=== PATIENT | male | born 1965 | race Caucasian/White ===

== ENCOUNTER 2016-11-22 09:54 | Inpatient (IN) ==
[2016-11-22] MEDS ORDERED: SODIUM CHLORIDE 0.9% 1,000 ML IV STA ×2 (10:16→11:14)
[2016-11-22] MEDS ORDERED: LEVOFLOXACIN INJ 750 MG in PREMIX 1 EACH IV STA (10:16)
[2016-11-22] MEDS ORDERED: ONDANSETRON ODT 4 MG TABLET PO STA (10:16)
[2016-11-22] MEDS ORDERED: cefTRIAXone 2,000 MG in SODIUM CHLORIDE 0.9% 100 ML IV ONE (10:24)
[2016-11-22 10:31] LABS: Basophils % 0.5 % (0.0-0.8); Eosinophils % 0.5 % (0.00-10.9); Hematocrit 38.3 VOL% (42.0-52.0); Hemoglobin 13.5 GM/DL (14.0-18.0); Immature Granulocytes % 0.5 %; Immature Granulocytes Absolute 0.02 #; Lymphocytes # 1.3 10*3/uL (1.4-4.0); Lymphocytes % 31.8 % (21.2-54.2); Mean Corpuscular HGB Conc 35.2 GM/DL (32-36); Mean Corpuscular Hemoglobin 29 PG (27-34); Mean Corpuscular Volume 83.3 FL (87-102); Mean Platelet Volume 9.1 FL (9.6-12.0); Monocytes # 0.4 10*3/uL (0.11-0.8); Monocytes % 10.4 % (1.7-12.7); Neutrophils # 2.3 10*3/uL (1.4-7.4); Neutrophils % 56.3 % (38.7-73.9); Platelet Count 210 T/CUMM (130-400); Red Cell Distribution Width 13.4 % (9.3-17.3)
[2016-11-22] MEDS ORDERED: LEVOFLOXACIN INJ 150 ML IV ONE (10:37)
[2016-11-22] MEDS ORDERED: cefTRIAXone 1,000 MG VIAL ONE ×2 (10:38→10:48)
[2016-11-22] MEDS ORDERED: ONDANSETRON ODT 4 MG TABLET PO ONE (10:38)
--- NOTE | 2016-11-22 10:46 | CT Report ---
History: Dysuria. Lower abdominal pain. Stones. Neurogenic bladder Date: 11/22/2016 Study: CT abdomen and pelvis without contrast Comparison exam: No previous similar exam Technique: Spiral CT sections were obtained from the lung bases to the pubic symphysis without contrast. The CT exam was performed using one or more of the following dose reduction techniques: Automated exposure control, adjustment of the mA and/or kV according to patient size, or use of iterative reconstruction technique. CT abdomen: There is no agnieszka pneumonia in the partially visualized lung bases. There is some pleural-based platelike atelectasis or scarring in either lower lung zone, left more than right. There is no gross pleural or pericardial effusion. There is no evidence of pneumoperitoneum. The spleen, pancreas, adrenal glands, bile ducts, gallbladder, and kidneys are normal in noncontrast appearance. There is no radiopaque renal or ureteral stone. There is no hydronephrosis. There is a 9.5 mm lobular low-density superiorly in the left lobe of the liver which may represent hepatic cyst, but is difficult to characterize because of size and lack of contrast. The liver is otherwise unremarkable. There is no aneurysm of the mildly calcified abdominal aorta. There is an infrarenal level IVC filter in place, likely [employer]. The appendix appears normal without evidence of agnieszka appendicitis. CT pelvis: There is no pelvic mass or pelvic lymphadenopathy. There is mild diffuse prominence of the wall of the urinary bladder such as that which can be seen with neurogenic bladder or chronic cystitis. Phleboliths are noted in the pelvis. Impression: No radiopaque renal or ureteral stone. No definite acute abdominal process. Infrarenal level IVC filter. Diffuse mild thickening of the wall of the urinary bladder such as that which can be seen with chronic cystitis or neurogenic bladder PROCEDURE INTERPRETED AT [facility] DEPARTMENT OF RADIOLOGY Final Report Signed by: Dr. Berna Wahl
[2016-11-22 10:50] LABS: Calcium 8.6 MG/DL (8.5-10.1); Osmolality,Calculated 268.1 MOS/KG (273-304); Potassium 3.7 MMOL/L (3.5-5.1)
[2016-11-22 11:01] LABS: Apearance,Urine CLOUDY (Clear); Bacteria,Urine Many /HPF (Few); Bilirubin,Urine Negative (Negative); Blood, Urine Small mg/dL (Negative); Glucose,Urine (UA) Negative (Negative); Ketones,Urine Negative (Negative); Nitrite,Urine Positive (Negative); Protein,Urine Negative; RBC,Urine 36 /HPF (0-4); Sperm,Urine Occasional /HPF (Negative); Urine Color Yellow (Yellow); Urine Specific Gravity 1.003 (1.001-1.035); Urine Urobilinogen < 2.0 EU/DL (0.2-1.0); WBC,Urine 340 /HPF (0-6)
[2016-11-22 11:10] LABS: Band Neutrophils 1 % (0-10); Hypochromasia 1+; Lymphocytes 30 % (20-55); Segmented Neutrophils 56 % (50-85); Total Cells Counted 100
[2016-11-22 11:12] LABS: Platelet Estimate Normal
--- NOTE | 2016-11-22 12:44 | Emergency Department Note ---
Yann To Manpreet, am scribing for, and in the presence of, Saúl Jean Baptiste MD 10:16. Markel To Doug C, MD, personally performed the services described in this documentation, ascribed by Juan Manuel Lerner in my presence, and it is both accurate and complete . Arrival - Arrival Chief Complaint: Urogenital - Male Stated Complaint: STINGING IN RIGHT FOOT ED Nursing Triage Note: C/o penis burning and stinging-onset three days ago. Patient has kidd with leg bag, reports dark urine in bag this morning. Mode of Arrival: Ambulatory Limitations: No Limitations Source: Patient - History of Present Illness HPI Narrative: Patient 51-year-old white male comes in today complaining of burning with urination and weakness. Patient states he also has had a subjective fever but denies any flank pain, nausea or vomiting. Patient states he felt very weak when he walked here to the emergency room from the parking lot and thought he might pass out. There is noted to have a blood pressure 76/41 on arrival here at the ED. Patient has a history of neurogenic bladder following a spinal cord injury in 2005. He has to and out caths and he also wears a condom catheter. Patient states she is urine was very dark this morning. He said similar problems in the past with urinary tract infections. Onset (ago): day(s) Consistency: constant Severity: moderate Severity scale (1-10): 3 Quality: burning Allergies/Adverse Reactions: Allergies Allergy/AdvReac Type Severity Reaction Status Date / Time Unable to Obtain Allergy Unverified 07/23/16 20:02 Home Medications: Home Medications Medication Instructions Recorded Confirmed Type Baclofen Tab [Lioresal] 20 mg PO QID 07/23/16 11/22/16 History Gabapentin 300 mg PO QPM 07/23/16 11/22/16 History Tizanidine HCl [Zanaflex] 4 mg PO BID 07/23/16 11/22/16 History Tolterodine LA [Detrol LA] 4 mg PO QAM 07/23/16 11/22/16 History Ibuprofen Tab [Motrin Tab] 800 mg PO DAILY PRN 11/22/16 11/22/16 History Review of System - Review of System 12 point system: reviewed and no additional remarkable complaints except as stated - Review of System Constitutional: Present: chills, fever ("[place] like he had a fever"), weakness. Absent: diaphoresis Head/Ears/Nose/Throat: Absent: sore throat ( ) Respiratory: Absent: cough, respiratory distress Cardiovascular: Absent: chest pain, dyspnea on exertion Gastrointestinal: Absent: abdominal pain, nausea, vomiting Genitourinary male: Present: dysuria, other (Dark orange urine). Absent: hematuria Musculoskeletal: Absent: back pain, neck pain Neurological: Absent: headache Medical,Surgical,& Family Hx - Medical History Musculoskeletal: History of: Back/Neck Problems, Musculoskeletal Problems - Social History Smoking Status: Never smoker Frequency of Alcohol Use: None Type of Drug Use: None Exam Vital Signs: Vital Signs Temperature 97.1 F L 11/22/16 10:01 Pulse Rate 64 11/22/16 12:15 Respiratory Rate 15 11/22/16 12:15 Blood Pressure 100/56 11/22/16 12:15 O2 Sat by Pulse Oximetry 100 11/22/16 12:15 - General General appearance: alert, in no apparent distress - Head Head exam: Present: atraumatic, normocephalic, normal inspection - Eye Eye exam: Present: normal appearance, PERRL, EOMI - ENT ENT exam: Present: normal exam, normal oropharynx, mucous membranes moist, TM's normal bilaterally - Neck Neck exam: Present: normal inspection, full ROM, trachea midline. Absent: tenderness, thyromegaly - Chest Chest inspection: Present: normal inspection, symmetric chest wall rise. Absent : tenderness - Respiratory Respiratory exam: Present: normal lung sounds bilaterally. Absent: accessory muscle use, respiratory distress - Cardiovascular Cardiovascular exam: Present: regular rate, normal rhythm, normal heart sounds. Absent: murmur, rubs, gallop - Abdominal Exam Abdominal exam: Present: soft, normal bowel sounds. Absent: distention, tenderness, guarding, diminished bowel sounds - Extremities Exam Extremities exam: Present: normal inspection, full ROM. Absent: tenderness - Back Exam Back exam: Present: normal inspection, full ROM. Absent: tenderness - Neurological Exam Neurological exam: Present: alert, oriented X3, CN II-XII intact, reflexes normal - Psychiatric Psychiatric exam: Present: normal affect, normal mood - Skin Skin exam: Present: warm, dry, intact, normal color. Absent: pallor Course Course Narrative: Patient's clinical history, laboratory findings and x-ray results were discussed with Arley who is covering the hospitalist service. Patient will be seen in the emergency room and evaluated for admission. Results - Labs CBC & BMP: 11/22/16 10:23 11/22/16 10:23 Lab Results: I have reviewed the patients labs Labs: Laboratory Tests 11/22/16 10:23 WBC 4.0 RBC 4.60 Hgb 13.5 L Hct 38.3 L MCV 83.3 L MPV 9.1 L Lymph # (Auto) 1.3 L Laboratory Tests 11/22/16 10:23 Sodium 135 L Potassium 3.7 Chloride 102 Carbon Dioxide 25 Anion Gap 11.7 BUN 8 Glucose 120 H Calculated Osmolality 268.1 L Laboratory Tests 11/22/16 10:23 Urine pH 6.0 Ur Specific [place] 1.003 Urine Nitrate Positive H Urine Urobilinogen < 2.0 H Urine Leukocytes Large H Urine RBC 36 Urine WBC 340 Laboratory Tests 11/22/16 10:23 Total Counted 100 Segmented Neutrophils 56 Band Neutrophils 1 Lymphocytes 30 Monocytes 13 Hypochromasia 1+ - Diagnostic Findings Procedure: CT Abdomen and Pelvis: report reviewed by me (CT Abd/Pel w/o Con: No radiopaque renal or ureteral stone. No definite acute abdominal process. Infrarenal level IVC filter. Diffuse mild thickening of the wall of the urinary bladder such as that which can be seen with chronic cystitis or neurogenic bladder.) Disposition Clinical Impression: UTI (urinary tract infection) Case discussed with: patient Disposition: Still a Patient Condition: Stable Time of Disposition: 12:43 Sepsis - Sepsis Classification of Sepsis: Sepsis Possible / Suspected infection from: UTI Sepsis documentation within 6 hours of presentation: fluid change - Physical Exam Capillary Refill: Greater Than 3 Seconds Peripheral pulses: Radial (L): 1+, Radial (R): 1+ Cardiovascular exam: regular rate and rhythm Skin exam: normal color
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
[2016-11-22] MEDS ORDERED: ACETAMINOPHEN 325 MG TABLET PO PRN (14:58)
[2016-11-22] MEDS: ENOXAPARIN 40 MG/0.4 ML SYRINGE SUBCUT SCH (16:45)
[2016-11-22] MEDS: SODIUM CHLORIDE 0.9% 1,000 ML IV SCH (16:45)
[2016-11-22] MEDS ORDERED: GABAPENTIN 300 MG CAPSULE PO SCH (19:00)
[2016-11-22] MEDS: tiZANidine 4 MG TABLET PO SCH (21:14)
[2016-11-23] MEDS: SODIUM CHLORIDE 0.9% 1,000 ML IV SCH ×2 (05:36→17:21)
[2016-11-23 06:15] LABS: Basophils % 0.7 % (0.0-0.8); Eosinophils % 0.7 % (0.00-10.9); Hematocrit 33.3 VOL% (42.0-52.0); Hemoglobin 11.5 GM/DL (14.0-18.0); Immature Granulocytes % 0.3 %; Immature Granulocytes Absolute 0.01 #; Lymphocytes # 1.4 10*3/uL (1.4-4.0); Lymphocytes % 45.7 % (21.2-54.2); Mean Corpuscular HGB Conc 34.5 GM/DL (32-36); Mean Corpuscular Hemoglobin 30 PG (27-34); Mean Corpuscular Volume 85.6 FL (87-102); Mean Platelet Volume 9.7 FL (9.6-12.0); Monocytes # 0.4 10*3/uL (0.11-0.8); Monocytes % 11.6 % (1.7-12.7); Neutrophils # 1.2 10*3/uL (1.4-7.4); Platelet Count 182 T/CUMM (130-400); Red Blood Count 3.89 MC/CUMM (3.8-5.5); Red Cell Distribution Width 13.6 % (9.3-17.3)
[2016-11-23 06:56] LABS: Calcium 7.8 MG/DL (8.5-10.1); Magnesium 2.1 MG/DL (1.8-2.4); Osmolality,Calculated 277.3 MOS/KG (273-304); Potassium 3.7 MMOL/L (3.5-5.1); Risk Ratio 6.29; Thyroid Stimulating Hormone 2.36 uIU/ml (0.358-3.74)
[2016-11-23 07:54] LABS: Hypochromasia 2+; Lymphocytes 25 % (20-55); Microcytosis 2+; Platelet Estimate Adequate; Segmented Neutrophils 60 % (50-85); Total Cells Counted 99
[2016-11-23] MEDS: TOLTERODINE LA 4 MG CAPSULE PO SCH (08:39)
[2016-11-23] MEDS: PANTOPRAZOLE 40 MG TABLET PO SCH (08:39)
[2016-11-23] MEDS: tiZANidine 4 MG TABLET PO SCH ×2 (08:39→20:48)
[2016-11-23] MEDS: cefTRIAXone 1,000 MG in SODIUM CHLORIDE 0.9% 100 ML IV SCH (08:39)
--- NOTE | 2016-11-23 10:25 | Hospitalist Progress Note ---
Assessment and Plan (1) UTI (urinary tract infection) Status: Acute Assessment and plan: Continue rocephin Urine culture with gram negative rods, f/u final Current Visit: Yes (2) Hypotension Status: Acute Assessment and plan: Improving with IV fluids Current Visit: Yes Hospitalist: Subjective Interval history: No acute events overnight. Patient without complaints. The burning with urination has resolved. Exam - Constitutional Vitals: Period Temp Pulse Resp BP Sys/Ross Pulse Ox Last 24 Hr 97.6 F-99.2 F 62-80 14-20 87-115/55-70 94-100 General appearance: normal weight - Head Head exam: Present: normocephalic, atraumatic - Eye Eye exam: Present: EOMI Pupils: Present: CRISTHIAN - ENT ENT exam: Present: normal exam - Neck Neck exam: Present: normal inspection - Respiratory Respiratory exam: Present: clear to auscultation bilaterally. Absent: rhonchi, wheezes - Cardiovascular Cardiovascular exam: Present: regular rate and rhythm - GI/Abdominal GI/Abdominal exam: Present: normal bowel sounds, soft. Absent: tenderness, rebound - Extremities Exam Extremities exam: Present: normal inspection - Back Exam Back exam: Present: normal inspection - Neurological Exam Neurological exam: Present: alert, oriented X3 - Psychiatric Psychiatric exam: Present: normal affect, normal mood - Skin Skin exam: Present: warm, intact Results - Labs CBC & BMP: 11/23/16 05:38 11/23/16 05:39
[2016-11-23] MEDS: BACLOFEN 20 MG TABLET PO SCH ×3 (15:14→20:48)
[2016-11-23] MEDS: ENOXAPARIN 40 MG/0.4 ML SYRINGE SUBCUT SCH (15:14)
[2016-11-23] MEDS ORDERED: GABAPENTIN 300 MG CAPSULE PO SCH (16:43)
[2016-11-23] MEDS ORDERED: DOCUSATE SODIUM 100 MG CAPSULE PO PRN (17:31)
[2016-11-23] MEDS: GABAPENTIN 300 MG CAPSULE PO SCH (20:48)
[2016-11-24 07:20] LABS: Basophils % 0.9 % (0.0-0.8); Eosinophils % 0.9 % (0.00-10.9); Hematocrit 33.4 VOL% (42.0-52.0); Hemoglobin 11.2 GM/DL (14.0-18.0); Immature Granulocytes % 0.6 %; Immature Granulocytes Absolute 0.02 #; Lymphocytes % 58.2 % (21.2-54.2); Mean Corpuscular HGB Conc 33.5 GM/DL (32-36); Mean Corpuscular Hemoglobin 29 PG (27-34); Mean Corpuscular Volume 85.9 FL (87-102); Mean Platelet Volume 10.1 FL (9.6-12.0); Monocytes # 0.4 10*3/uL (0.11-0.8); Monocytes % 10.4 % (1.7-12.7); Platelet Count 193 T/CUMM (130-400); Red Blood Count 3.89 MC/CUMM (3.8-5.5); Red Cell Distribution Width 13.8 % (9.3-17.3); White Blood Count 3.4 T/CUMM (4-12)
[2016-11-24 07:33] LABS: Calcium 7.9 MG/DL (8.5-10.1); Magnesium 2.2 MG/DL (1.8-2.4); Osmolality,Calculated 281.8 MOS/KG (273-304); Potassium 3.6 MMOL/L (3.5-5.1)
[2016-11-24] MEDS: SODIUM CHLORIDE 0.9% 1,000 ML IV SCH ×2 (08:32→09:11)
[2016-11-24] MEDS: BACLOFEN 20 MG TABLET PO SCH ×5 (09:07→20:38)
[2016-11-24] MEDS: tiZANidine 4 MG TABLET PO SCH ×2 (09:07→20:39)
[2016-11-24] MEDS: cefTRIAXone 1,000 MG in SODIUM CHLORIDE 0.9% 100 ML IV SCH (09:08)
[2016-11-24] MEDS: TOLTERODINE LA 4 MG CAPSULE PO SCH (09:08)
[2016-11-24] MEDS: PANTOPRAZOLE 40 MG TABLET PO SCH (09:08)
--- NOTE | 2016-11-24 09:18 | XRay Report ---
XR KUB Indication: Abdominal pain, constipation Comparison: CT 22 November 2016 Findings: No free fluid or free air seen. Increased stool volume is seen in the colon. The bowel gas pattern otherwise appears within normal limits. No abnormal calcifications are present. No other abnormality is identified. Impression: Increased stool volume in the colon, may indicate constipation. PROCEDURE INTERPRETED AT [facility] DEPARTMENT OF RADIOLOGY Final Report Signed by: Dr. Ed Silver
[2016-11-24 09:20] LABS: Band Neutrophils 1 % (0-10); Eosinophils 1 % (0-10); Hypochromasia 2+; Lymphocytes 40 % (20-55); Microcytosis 2+; Platelet Estimate Adequate; Segmented Neutrophils 38 % (50-85); Total Cells Counted 100
--- NOTE | 2016-11-24 11:58 | Hospitalist Progress Note ---
Assessment and Plan (1) UTI (urinary tract infection) Status: Acute Assessment and plan: Continue rocephin Urine culture with Klebsiella, continue rocephin Current Visit: Yes (2) Hypotension Status: Acute Assessment and plan: Improving with IV fluids Will discontinue fluids, if does well will discharge tomorrow Current Visit: Yes Hospitalist: Subjective Interval history: No acute events overnight. Patient reports constipation. Exam - Constitutional Vitals: Period Temp Pulse Resp BP Sys/Ross Pulse Ox Last 24 Hr 97.6 F-99.0 F 56-81 15-19 90-140/58-76 90-99 General appearance: normal weight - Head Head exam: Present: normocephalic, atraumatic - Eye Eye exam: Present: EOMI Pupils: Present: CRISTHIAN - ENT ENT exam: Present: normal exam - Neck Neck exam: Present: normal inspection - Respiratory Respiratory exam: Present: clear to auscultation bilaterally - Cardiovascular Cardiovascular exam: Present: regular rate and rhythm - GI/Abdominal GI/Abdominal exam: Present: normal bowel sounds, soft. Absent: tenderness, rebound - Extremities Exam Extremities exam: Present: normal inspection - Back Exam Back exam: Present: normal inspection - Neurological Exam Neurological exam: Present: alert, oriented X3 - Psychiatric Psychiatric exam: Present: normal affect, normal mood - Skin Skin exam: Present: warm, intact Results - Labs CBC & BMP: 11/24/16 05:21 11/24/16 05:21
[2016-11-24] MEDS: ENOXAPARIN 40 MG/0.4 ML SYRINGE SUBCUT SCH (15:36)
[2016-11-24] MEDS: GABAPENTIN 300 MG CAPSULE PO SCH (20:39)
[2016-11-25 09:58] VITALS: BP 114/71
[2016-11-25] MEDS: BACLOFEN 20 MG TABLET PO SCH (10:01)
[2016-11-25] MEDS: TOLTERODINE LA 4 MG CAPSULE PO SCH (10:01)
[2016-11-25] MEDS: PANTOPRAZOLE 40 MG TABLET PO SCH (10:01)
[2016-11-25] MEDS: cefTRIAXone 1,000 MG in SODIUM CHLORIDE 0.9% 100 ML IV SCH (10:02)
[2016-11-25] MEDS: tiZANidine 4 MG TABLET PO SCH (10:02)
--- NOTE | 2016-11-25 10:08 | Discharge Summary ---
<Roxanne Sanfordda - Last Filed: 11/25/16 09:17> Hospital Course - Hospital Course Hospital Course: This is a 51-year-old male that presented to the ED at [facility] on November 22, 2016 for the evaluation of urogenital discomfort. Patient has a medical history significant for spinal cord injury with subsequent neurogenic bladder. The patient reported the onset of symptoms 2 days prior to presentation. He reported that he started to experience some burning with urination and weakness. The patient reported that he performs intermittent in and out catheterizations and also wears a condom catheter as a result of his spinal cord injury which left him with a neurogenic bladder. He reported that he had fever however denied flank pain,nausea, vomiting. His symptoms became unbearable; prompting him to present to the ED for further evaluation. The patient was assessed at the time of ED presentation. He was noted to be grossly hypotensive with a blood pressure noted at 76/41. The patient was given multiple fluid boluses and his pressure responded appropriately and was noted shortly thereafter at 100/56. CT scan abdomen and pelvis reported no radiopaque renal or ureteral stone, no definite acute abdominal process, infrarenal level IVC filter, and diffuse mild thickening of the wall of the urinary bladder which would correlate with chronic cystitis and neurogenic bladder. Urinalysis reported positive nitrates, urobilinogen greater than 2.0, large amount of leukocytes, urine WBCs were noted at 340, occasional WBC clumps , and many urine bacteria. The patient was subsequently admitted to hospitalist services for continuation of care. The patient was admitted. The patient was gently rehydrated and empiric antibiotics were initiated. On October 23, 2016, urine cultures reported Klebsiella pneumoniae; and empiric antibiotic coverage was continued. The patient's condition gradually improved. On November 24, 2016, kidneys ureter and bladder was performed which reported increased to volume in the colon which could indicate constipation. The patient was medicated and eventually had a bowel movement. The patient condition has remained stable. He has not experienced any significant overnight events. He has reached maximal benefit of inpatient stay and will be discharged home. Discharge Plan - Discharge Data Disposition: Disch To Home/Self Care - Discharge Medications New Ciprofloxacin HCl [Ciprofloxacin Tab] 500 mg PO BID #10 tablet Continue Baclofen Tab [Lioresal] 20 mg PO QID Tolterodine LA [Detrol LA] 4 mg PO QAM Gabapentin 300 mg PO QPM Tizanidine HCl [Zanaflex] 4 mg PO BID Ibuprofen Tab [Motrin Tab] 800 mg PO DAILY PRN PRN Reason: Pain Docusate Sodium [Colace] 100 mg PO BID PRN PRN Reason: Constipation - Follow Up or Referral - Forms/Instructions Exam - Constitutional Vitals: Period Temp Pulse Resp BP Sys/Ross Pulse Ox Last 24 Hr 97.4 F-97.9 F 61-84 16-20 94-118/48-64 91-98 Discharge Results Procedures and tests throughout hospitalization: Pending Orders 11/22/16 10:46 Blood Culture Stat Labs on day of discharge: Preliminary micro results at discharge 11/22/16 10:46 Blood Culture - Preliminary Blood No growth at 1 day 11/22/16 10:46 Blood Culture - Preliminary Blood No growth at 1 day DS: Provider Date of admission: 11/22/16 12:40 Primary care physician: . Sonia PCP Attending physician on admission: Brian Mata MD Consults: 11/22/16 14:58 Consult to Case Mgmt/Social Srvs [CONS] Routine Reason for Case Mgmt/Social Srvs: Discharge Planning Discharging clinician: Flaquito Sanford CNP <Brian Mata - Last Filed: 11/25/16 09:41> Hospital Course - Time spent with patient Time with patient DS: Less than 30 minutes (25) Diagnosis - Discharge Diagnosis (1) UTI (urinary tract infection) Status: Resolved (2) Hypotension Status: Resolved Discharge Plan - Discharge Data Condition at Discharge: Stable Discharge Diet: advance to your usual diet Activity: increase activity as tolerated Hygiene: no restrictions Weight Bearing at Discharge: weight bear as tolerated Contact your physician if you experience:: fever over 101 Exam - Constitutional General appearance: normal weight - Head Head exam: Present: normocephalic, atraumatic - Eye Eye exam: Present: EOMI Pupils: Present: CRISTHIAN - ENT ENT exam: Present: normal exam - Neck Neck exam: Present: normal inspection - Respiratory Respiratory exam: Present: clear to auscultation bilaterally. Absent: rhonchi, wheezes - Cardiovascular Cardiovascular exam: Present: regular rate and rhythm - GI/Abdominal GI/Abdominal exam: Present: normal bowel sounds, soft. Absent: tenderness, rebound - Extremities Exam Extremities exam: Present: normal inspection - Back Exam Back exam: Present: normal inspection - Neurological Exam Neurological exam: Present: alert, oriented X3 - Psychiatric Psychiatric exam: Present: normal affect, normal mood - Skin Skin exam: Present: warm, intact
--- NOTE | 2016-11-25 10:39 | Physician Query Form ---
CLICK EDIT DOCUMENT TO SELECT QUERY ANSWER --> OK --> SIGN Meka Beckman RN Clinical Associate Professor Of Medicine W) [phone] (f) [phone] [email or web address] PROVIDERS: Make your selection(s) from the choices in EACH section by typing an "x" and enter comments in the comment section. Please use your independent medical judgment in providing your response. This request does not imply that any particular answer is desired or expected. CLINICAL INDICATORS: (Providers should not edit this section) Based on documentation of "acute UTI" and "Patient has a history of neurogenic bladder. He has to and out caths and he also wears a condom catheter". Pt. treated with IV Levaquin. Based on the above, could you clarify the appropriate diagnosis, if significant , that supports the above abnormalities and additional evaluation, monitoring, and/or treatment rendered: ( ) UTI due to in and out catheterizations / condom catheter ( ) UTI not due to in and out catheterizations / condom catheter ( ) Other, please specify: (X) Clinically unable to determine COMMENTS: PLEASE ALSO DOCUMENT RESPONSE IN PROGRESS NOTES AND/OR DISCHARGE SUMMARY Use of terms such as suspected, likely, or probable (associated with a specific diagnosis that is being evaluated, monitored, or treated as if it exists) are acceptable and can be restated in the discharge summary if not ruled out. MTDD
== END 2016-11-25 12:19 | disposition home or self-care (01) | DRG 690 ==
LOC: N.ED 09:54 → N.EDINP 12:40 → N.5E 14:11
PROVIDERS: ADMIT Internal Medicine; ATTEND Internal Medicine

== ENCOUNTER 2017-12-24 18:13 | Observation (INO) ==
[2017-12-24] MEDS ORDERED: BISACODYL 5 MG TABLET PO PRN (18:18)
[2017-12-24] MEDS ORDERED: ACETAMINOPHEN 325 MG TABLET PO PRN (18:18)
[2017-12-24] MEDS ORDERED: ONDANSETRON 4 MG/2 ML VIAL IV PRN (18:18)
[2017-12-24] MEDS ORDERED: PROMETHAZINE 25 MG/1 ML VIAL IM PRN (18:18)
[2017-12-24 19:28] LABS: Eosinophils # 0.1 10*3/uL (0.0-0.87); Eosinophils % 1.8 % (0.00-10.9); Hematocrit 45.3 VOL% (42.0-52.0); Hemoglobin 15.5 GM/DL (14.0-18.0); Lymphocytes # 1.3 10*3/uL (1.4-4.0); Mean Corpuscular HGB Conc 34.2 GM/DL (32-36); Mean Corpuscular Hemoglobin 30 PG (27-34); Mean Corpuscular Volume 88.6 FL (87-102); Mean Platelet Volume 9.6 FL (9.6-12.0); Monocytes # 0.3 10*3/uL (0.11-0.8); Monocytes % 8.3 % (1.7-12.7); Neutrophils # 2.2 10*3/uL (1.4-7.4); Neutrophils % 55.9 % (38.7-73.9); Platelet Count 235 T/CUMM (130-400); Red Blood Count 5.11 MC/CUMM (3.8-5.5); Red Cell Distribution Width 12.9 % (9.3-17.3)
[2017-12-24 19:52] LABS: Albumin 3.9 G/DL (3.4-5.0); Bilirubin,Total 0.5 MG/DL (0.2-1.0); Calcium 8.5 MG/DL (8.5-10.1); Potassium 3.6 MMOL/L (3.5-5.1); Total Protein 7.5 G/DL (6.4-8.3)
[2017-12-24 19:59] LABS: Lactic Acid 2.2 MMOL/L (0.4-2.0)
[2017-12-24] MEDS: MEROPENEM 1,000 MG in SYRINGE 1 EACH IV SCH (20:01)
[2017-12-24] MEDS: SODIUM CHLORIDE 0.9% 1,000 ML IV SCH (20:09)
[2017-12-24] MEDS: ENOXAPARIN 40 MG/0.4 ML SYRINGE SUBCUT SCH (21:05)
[2017-12-24] MEDS: TAMSULOSIN 0.4 MG CAPSULE PO SCH (21:05)
[2017-12-24] MEDS: GABAPENTIN 300 MG CAPSULE PO SCH (21:05)
[2017-12-24] MEDS: BACLOFEN 20 MG TABLET PO SCH (21:05)
[2017-12-24 23:49] LABS: Barbiturates Screen,Urine Negative (Negative); Benzodiazepines Screen,Urine Negative (Negative); Cannabinoid Screen,Urine Negative (Negative); Opiate Screen,Urine Negative (Negative); Phencyclidine Screen,Urine Negative (Negative)
[2017-12-25] MEDS: MEROPENEM 1,000 MG in SYRINGE 1 EACH IV SCH ×3 (03:10→21:16)
[2017-12-25] MEDS: SODIUM CHLORIDE 0.9% 1,000 ML IV SCH ×3 (04:52→23:23)
[2017-12-25 06:39] LABS: Red Cell Distribution Width 12.9 % (9.3-17.3)
[2017-12-25 06:50] LABS: Basophils % 1.2 % (0.0-0.8); Eosinophils # 0.1 10*3/uL (0.0-0.87); Eosinophils % 3.2 % (0.00-10.9); Hematocrit 38.7 VOL% (42.0-52.0); Immature Granulocytes % 0.3 %; Immature Granulocytes Absolute 0.01 #; Lymphocytes # 1.3 10*3/uL (1.4-4.0); Lymphocytes % 36.6 % (21.2-54.2); Mean Corpuscular HGB Conc 34.6 GM/DL (32-36); Mean Corpuscular Hemoglobin 30 PG (27-34); Mean Platelet Volume 9.8 FL (9.6-12.0); Monocytes # 0.4 10*3/uL (0.11-0.8); Monocytes % 10.2 % (1.7-12.7); Neutrophils # 1.7 10*3/uL (1.4-7.4); Neutrophils % 48.5 % (38.7-73.9); Platelet Count 197 T/CUMM (130-400); Red Blood Count 4.45 MC/CUMM (3.8-5.5); White Blood Count 3.4 T/CUMM (4-12)
[2017-12-25 07:02] LABS: Hemoglobin 13.4 GM/DL (14.0-18.0)
[2017-12-25 07:13] LABS: Risk Ratio 3.53; VLDL CHOLESTEROL 19.8 MG/DL
[2017-12-25] MEDS: BACLOFEN 20 MG TABLET PO SCH ×4 (09:45→21:16)
[2017-12-25] MEDS: PANTOPRAZOLE 40 MG TABLET PO SCH (09:45)
[2017-12-25 13:00] LABS: HIV Antigen/Antibody Result Nonreactive (Nonreactive)
[2017-12-25 13:40] LABS: Troponin I < 0.015 NG/ML (0.00-0.045)
[2017-12-25] MEDS: ENOXAPARIN 40 MG/0.4 ML SYRINGE SUBCUT SCH (21:15)
[2017-12-25] MEDS: TAMSULOSIN 0.4 MG CAPSULE PO SCH (21:16)
[2017-12-25] MEDS: GABAPENTIN 300 MG CAPSULE PO SCH (21:16)
[2017-12-26] MEDS: MEROPENEM 1,000 MG in SYRINGE 1 EACH IV SCH (04:35)
[2017-12-26 05:57] LABS: Troponin I < 0.015 NG/ML (0.00-0.045)
[2017-12-26] MEDS ORDERED: CIPROFLOXACIN 500 MG TABLET PO ONE (08:05)
[2017-12-26] MEDS: BACLOFEN 20 MG TABLET PO SCH ×2 (09:03→12:35)
[2017-12-26] MEDS: PANTOPRAZOLE 40 MG TABLET PO SCH (09:03)
[2017-12-26 13:02] VITALS: BP 116/73
== END 2017-12-26 13:42 | disposition home or self-care (01) ==
LOC: N.EDINP 18:13 → N.ED 18:13 → SUATTDRO 18:18 → N.3E 20:25
PROVIDERS: ADMIT Internal Medicine; ATTEND Hospitalist